=== PATIENT | male | born 1995 | race Asian ===

== ENCOUNTER 2017-11-02 09:53 | Emergency (ER) | payer BC, OTHER ==
[2017-11-02 11:23] LABS: HIV (1/2) Antibody/Antigen Non-Reactive (NonReactive); HIV 1/2 INDEX 0.51 S/CO (<1.00); Hep C IgG Ab Non-Reactive (NonReactive); Hep C Index 0.21 S/CO (0-0.79)
[2017-11-02 12:49] LABS: HBSAB Concentration 127.64 mIU/mL; Hep B Surf AB Reactive (NonReactive)
== END 2017-11-02 11:19 | disposition home or self-care (01) ==
LOC: ERS 09:53
DX: Z77.21 Contact with and (suspected) exposure to potentially hazardous body fluids (principal); E03.9 Hypothyroidism, unspecified; I10 Essential (primary) hypertension; J45.909 Unspecified asthma, uncomplicated; F41.9 Anxiety disorder, unspecified
CPT/HCPCS: 36415; 86706; 86803; 87389; 99283

== ENCOUNTER 2019-05-11 14:53 | Emergency (ER) | payer BC | END 2019-05-11 16:20 | disposition home or self-care (01) | LOC: ERS 14:53 | DX: S50.812A Abrasion of left forearm, initial encounter (principal); I10 Essential (primary) hypertension; E03.9 Hypothyroidism, unspecified; J45.909 Unspecified asthma, uncomplicated; F41.9 Anxiety disorder, unspecified; Z79.899 Other long term (current) drug therapy; W26.8XXA Contact with other sharp object(s), not elsewhere classified, initial encounter | CPT/HCPCS: 99283 ==